=== PATIENT | female | born 1955 | race Two or more races ===

== ENCOUNTER → 2024-01-18 | Outpatient (CLI) | payer MEDICAID, SELFPAY ==
[2024-01-17 13:19] LABS: Basophils % (Auto) 0 % (0-2.5); Eosinophils # (Auto) 0.1 Thou/mm3 (0.0-0.5); Eosinophils % (Auto) 1 % (0-10); Hematocrit 37.4 % (36.0-46.0); Hemoglobin 12.5 g/dL (12.0-16.0); Immature Granulocytes % (Auto) 0 % (0-0); Immature Granulocytes Auto 0.03 Thou/mm3 (0.00-0.00); Lymphocytes # (Auto) 3.5 Thou/mm3 (1.0-4.8); Lymphocytes % (Auto) 36 % (10-50); Mean Corpuscular HGB Conc 33.4 g/dl (31.0-37.0); Mean Corpuscular Hemoglobin 31.6 pg (25.0-35.0); Mean Corpuscular Volume 94 fL (80-100); Monocytes # (Auto) 0.6 Thou/mm3 (0.0-0.8); Monocytes % (Auto) 6 % (0-12); Neutrophils # (Auto) 5.6 Thou/mm3 (1.8-7.7); Neutrophils % (Auto) 57 % (37-80); Nucleated Red Blood Cell % 0 /100 WBC (0); Platelet Count 216 Thou/mm3 (140-440); RDW Standard Deviation 42.8 fL (36.4-46.3); Red Blood Count 3.96 Miln/mm3 (4.00-5.20); White Blood Count 9.8 Thou/mm3 (3.6-11.0)
[2024-01-17 13:21] LABS: INR 0.9 (0.9-1.3); Partial Thromboplastin Time 24.3 Seconds (22.0-36.0); Prothrombin Time 10.4 Seconds (9.0-12.2)
--- NOTE | 2024-01-18 | XR_ITS ---
Examination: Ultrasound-guided fine needle percutaneous aspiration thyroid nodule, left thyroid nodule. Thyroid sonography, limited Exam date and time: January 18, 2024 1043 hours INDICATIONS: Thyroid sonogram November 17, 2023 lower pole mass indistinct margins left thyroid 16 x 9 x 15 mm. Technique: A timeout was completed verifying correct patient, procedure, site, positioning and special equipment if applicable. The patient was placed in supine position for the thyroid fine needle percutaneous aspiration The patient's left neck was prepped and draped in sterile fashion. Maximum barrier sterile technique, hand hygiene, ultrasound sterile technique. 1% lidocaine was used to anesthetize the skin and subcutaneous tissues to the patient's right thyroid nodule. Multiple fine needle aspirations were performed and multiple thyroid specimens placed in preservative according to the [facility] protocol. Specimens appears satisfactory. The attending radiologist was present for the entire procedure. Estimated blood loss 3 cc. The patient tolerated the procedure well and there were no complications. Impression: Successful ultrasound-guided fine-needle percutaneous aspiration thyroid nodule, lower pole left thyroid nodule.
--- NOTE | 2024-01-18 09:30 | XR_ITS ---
Examination: Ultrasound-guided fine needle percutaneous aspiration thyroid nodule, lower right thyroid nodule. Thyroid sonography, limited Exam date and time: January 18, 2024 1042 hours INDICATION: Thyroid sonogram November 17, 2023 lower pole right thyroid nodule 19 x 17 mm. Technique: A timeout was completed verifying correct patient, procedure, site, positioning and special equipment if applicable. The patient was placed in supine position for the thyroid fine needle percutaneous aspiration The patient's right neck neck was prepped and draped in sterile fashion. Maximum barrier sterile technique, hand hygiene, ultrasound sterile technique. 1% lidocaine was used to anesthetize the skin and subcutaneous tissues to the patient's right thyroid nodule. Multiple fine needle aspirations were performed and multiple thyroid specimens placed in preservative according to the [facility] protocol. Specimens appears satisfactory. The attending radiologist was present for the entire procedure. Estimated blood loss 3 cc. The patient tolerated the procedure well and there were no complications. Impression: Successful ultrasound-guided fine-needle percutaneous aspiration thyroid nodule, right lower pole thyroid nodule.
== END | disposition home or self-care (01) ==
LOC: SIRX 09:48
PROVIDERS: Radiology Diagnostic Radiology; Referring Provider Nurse Practitioner Family; Visit Provider Nurse Practitioner Family
DX: E04.2 Nontoxic multinodular goiter (principal); C50.212 Malignant neoplasm of upper-inner quadrant of left female breast; Z01.812 Encounter for preprocedural laboratory examination
CPT/HCPCS: 10005; 10006; 36415; 85025; 85610; 85730

== ENCOUNTER 2024-01-30 11:14 | Outpatient (RCR) | payer MEDICAID, SELFPAY ==
--- NOTE | 2024-02-03 23:53 | CTCFLWUP_ITS ---
Patient: ESTEPHANIA MCNAIR : 1955 Page 5 of 7 FOLLOW UP NOTE DATE OF SERVICE: 01/30/2024 NAME: ESTEPHANIA MCNAIR ACCOUNT: [id number] : 1955 AGE: 68 INTERVAL HISTORY: Patient is complaining of pain in her bilateral shoulders. Patient have difficulty moving shoulders and arms. At last visit she was given exercises and she says she is unable to do them. Denies any i njury. Pain is at least 9 x 10 in both ONCOLOGY HISTORY: DIAGNOSIS: Malignant neoplasm of upper-inner quadrant of left female breast [ICD10] C50.212 DATE OF DIAGNOSIS: STAGE/TNM: TREATMENT HISTORY: Care?Plan Start?Date Cycle Day Intent PROLia?60mg?every?6?months 10/17/2019 1 180 Palliative HISTORY OF PRESENT ILLNESS: PREVIOUS NOTE: Estephania Jones is a 68-year-old female with following oncology history. 07/20/2015: Patient had screening mammograms which showed a focal asymmetry in the central inner quadr ant with evidence of underlying nodularity in the left breast. 02/01/2016: Patient had ultrasound-guided right breast mass biopsy which showed ER positive, FL posit jose martin HER-2/henrietta negative, moderately differentiated invasive ductal carcinoma. 03/08/2016: Patient had left breast mastectomy which revealed a 4.2 cm intermediate grade invasive caitlin justus carcinoma. 5 sentinel lymph nodes were negative for metastatic disease. Oncotype DX recurrence score was 6. In view of the low Oncotype DX recurrence score 6. Chemotherapy was not offered to the patient. 04/20/2016: Patient was started on anastrozole 1 mg p.o. daily. 05/10/2016: Patient had DEXA scan done which showed osteoporosis based on hip measurements. December 2016: Anastrozole was changed to exemestane due to bone pain. 11/16/2017:. I am seeing the patient for the first time. She complains of generalized body aches as well as weakness and fatigue. She continues to take exemestane at this time. She denies any other complaints. She d enies any weight loss or loss of appetite. Her body aches have been worsening over the last few months. 12/01/2017: Patient had CT scan of the chest abdomen pelvis with IV contrast which did not show any e vidence of metastatic disease. 12/04/2017: Patient is in the clinic today for follow-up. She continues to have body aches. Denies any cough chest pain Shortness of breath abdominal pain or leg cramps. Patient is started on tamoxifen 20 mg p.o. daily. 03/29/2018: Since last visit patient stopped taking exemestane. She has been taking tamoxifen 20 mg p .o. daily. She is in the clinic today for follow-up. Her body aches have significantly improved. She is doing very well. Denies any new complaints. Denies any weakness fatigue cough chest pain shortness of breath abdominal pain or leg c ramps. 02/07/2019: CT scan of the abdomen and pelvis?IMPRESSION: The entire study is severely degraded by sign ificant patient motion No interval metastatic disease Anterolisthesis L3 on L4, which may relate to patient motion bu t clinical correlation advised Recommend 5 view lumbar spine series follow-up 02/08/2019: PET CT scan?IMPRESSION: 6 mm hypermetabolic left tracheobronchial lymph node, suspicious fo r metastatic lymphadenopathy Subtle hypermetabolic activity anterior right acromium, clinical correlation advised No pathologic bony lesion is noted on the corresponding CT images involving the right acromion. 03/07/2019: X-rays of the lumbar spine?no acute lumbar fracture. Mild disc narrowing noted at the L5- S1 level. 08/21/2019: Bone density test? 08/30/2019: PET CT scan?negative for metastatic disease. 03/02/2023: DEXA 05/31/2023: CA 15-3 14.6, CEA 1.8 06/28/2023 CT chest abdomen and pelvis with contrast 07/14/2023: Right unilateral mammogram screening 08/04/2023: Right breast ultrasound Findings: No cystic or solid mass Impression: BI-RADS Category 1: Negative study 08/23/2023: 08/23/2023: 10/31/2023: Calcium 8.1, CA 15-3 is 11.2, CEA is 1.7 11/01/2023: CT chest without contrast OTHER MEDICAL HISTORY/CONDITIONS: FAMILY HISTORY: SOCIAL HISTORY: COMMUNITY MANAGER HISTORY: MEDICATIONS: 1. Citracal + D Slow Release - 600 mg-12.5 mcg (500 unit) 1 tab one tab po twice a day 2. Prolia - 60 3. tamoxifen - 20 mg 1 tab one tab po q daily Medications Last Reconciled by Estephania Arizmendi MA on 01/30/2024 ALLERGIES: No Known Allergies REVIEW OF SYSTEMS: A complete 14-point review of systems was performed and is negative except as noted in interval histo ry. PHYSICAL EXAMINATION: VITAL SIGNS: Temperature?99, B/P?146/84, Oxygen?Saturation?96% Weight?137?lbs PAIN: 5 - Between moderate and severe pain ECOG Performance Status: 2 - Symptomatic; ambulatory; capable of self-care; >50% of waking hrs. not i n bed GENERAL APPEARANCE: Appears well, in no apparent distress, appropriately interactive. HEENT: Normocephalic, no temporal wasting, normal conjunctiva, no scleral icterus, normal hearing, li ps without lesions, neck normal range of motion. CARDIOVASCULAR: Not assessed. PULMONARY: Normal respiratory effort, no respiratory distress or use of accessory muscles, speaking i n full sentences, no tachypnea. EXTREMITIES: No pedal edema or cyanosis. SKIN: Normal skin appearance. NEUROLOGIC: Alert and oriented x4. PSHYCHIATRIC: Appropriate affect, mood normal, behavior normal, intact thought and speech. LABORATORY DATA: I have personally reviewed and interpreted each of the patient?s relevant lab tests, abnormal finding s are below: Date 01/17/24 ??WHITE?BLOOD?COUNT?(Thou/mm3) 9.8 ??RED?BLOOD?COUNT?(Miln/mm3) 3.96?L ??HEMOGLOBIN?(gm/dl) 12.5 ??HEMATOCRIT?(%) 37.4 ??PLATELET?COUNT?(Thou/mm3) 216 ??NEUTROPHILS?%,?AUTO?(%) 57 ??LYMPH?%,?AUTO?(%) 36 ??NEUTROPHILS,?AUTO?(Thou/mm3) 5.6 ASSESSMENT/PLAN: #1 stage IIa, ER positive, FL positive, HER-2/henrietta negative invasive ductal carcinoma of left breast. Oncotype DX recurrence score 6. S/p left mastectomy and sentinel lymph node biopsy on 03/08/2016. Patient is on tamoxifen #2 osteoporosis. DEXA showed improvement, (03/04/2023) Taking calcium twice daily, admits to forgetting to take daily . Prolia every 6 months. Hypertension, asymptomatic, did not take medication prior to appointment toda y. #3 pulmonary and thyroid nodules Thyroid nodule biopsied and are negative Placed referral to endocrinology Cocci titers were negative and TB test was negative Advised to follow-up with primary care #4 bilateral shoulder pain Ordered x-ray of both shoulders I have tried conservative treatment with exercises and patient did not have any improvement Will refer to orthopedics for evaluation Ordered CPK CBC CMP and advised to do the labs before patient sees orthopedics Will also get bone scan to make sure patient do not have metastatic disease CBC CMP bone scan referral to orthopedics refer to endocrinology TSH T4 and advised to follow-up with the primary care RETURN TO CLINIC: 4 to 6 weeks once patient's bone scan results are back BILLING AND COMPLIANCE: I reviewed external records from providers outside my specialty as summarized above. I spent a total of 50 minutes on this patient?s care on the day of their visit excluding time spent related to any bi lled procedures. This time includes time spent with the patient as well as time spent documenting in the medical record, reviewing patients records and tests, obtaining history, placing orders, communi cating with other healthcare professionals, counseling the patient, family or caregiver, and/or care coordination for the diagnoses above. Electronically Signed by: Milton Henderson MD T: 11:50 PM CC: Reynaldo?Puma,?ATIF PCP: Herve Hillman ([email or web address]) Referring: Milton Henderson This document was completed utilizing speech recognition software. Grammatical errors, random word in sertions, pronoun errors, and incomplete sentences are an occasional consequence of this system due t o software limitations, ambient noise, and hardware issues. Any formal questions or concerns about th e content, text or information contained within the body of this dictation should be directly address ed to the provider for clarification.
== END 2024-02-06 23:59 | disposition home or self-care (01) ==
LOC: SCTC 11:14
PROVIDERS: PCP Internal Medicine; Referring Provider Internal Medicine Hematology & Oncology; Visit Provider Internal Medicine Hematology & Oncology
DX: C50.212 Malignant neoplasm of upper-inner quadrant of left female breast (principal); Z17.0 Estrogen receptor positive status [ER+]; Z17.21 Progesterone receptor positive status; Z17.32 Human epidermal growth factor receptor 2 negative status; Z90.12 Acquired absence of left breast and nipple; Z79.810 Long term (current) use of selective estrogen receptor modulators (SERMs); M81.0 Age-related osteoporosis without current pathological fracture; E04.1 Nontoxic single thyroid nodule; R91.1 Solitary pulmonary nodule; M25.512 Pain in left shoulder; M25.511 Pain in right shoulder
CPT/HCPCS: Q3014

== ENCOUNTER → 2024-03-29 | Outpatient (CLI) | payer MEDICAID, SELFPAY ==
--- NOTE | 2024-03-29 09:00 | XR_ITS ---
Examination: MRI of brain without intravenous contrast. MRI brain with intravenous contrast. Date and time of exam:March 29, 2024 0954 hours INDICATIONS: Diagnosis malignant neoplasm upper inner quadrant left female breast, history blurred vision dizziness episodes 6 months Technique: Multiple axial and sagittal images of the brain to been obtained. Siemens high-resolution 1.52 [place] short bore scanner utilized. Sagittal sections, T1 weighted images, TR 500, TE 14, are performed. Axial sections proton-density and T2-weighted images have been obtained. Inversion recovery axial images, TR 9260, TE 111, TR 2500. Diffusion weighted images, axial sections, TR 4800, TE 128, B value 1000. Axial sections, ADC map, TR 4800, TE 128. Axial and coronal images were also obtained post 12 cc gadolinium administered intravenously. Findings:: Enlargement of the sella turcica is not present. The optic chiasm and infundibular stalk are not remarkable. There is no localized enlargement of the medulla or ruth. Fourth ventricle and cerebellar tonsils appear normal in position. No subacute area of hemorrhage density is seen. Fourth ventricle is midline. Mass in the cerebellopontine angle region is not evident. 7th and 8th nerve complexes exhibit symmetry Globes are symmetrical Orbital musculature including medial lateral rectus muscles do not exhibit abnormality Increased white matter signal is mild Effacement of the cortical sulcal markings is not identified. Mass effect upon the ventricular system is not identified. Diffusion-weighted images demonstrate no focus of restricted diffusion Contrast images demonstrate no abnormal enhancing cerebellar or cerebral lesions Impression: Negative for acute hemorrhage mass effect or midline shift No acute infarct No abnormal enhancing cerebellar or cerebral lesions
== END | disposition home or self-care (01) ==
LOC: SMRI 09:15
PROVIDERS: PCP Physician Assistant; Referring Provider Internal Medicine Hematology & Oncology; Visit Provider Internal Medicine Hematology & Oncology
DX: C50.212 Malignant neoplasm of upper-inner quadrant of left female breast (principal)
CPT/HCPCS: 70553; A9579

== ENCOUNTER → 2024-04-01 | Outpatient (CLI) | payer MEDICAID, SELFPAY ==
--- NOTE | 2024-04-01 12:30 | XR_ITS ---
Examination: Bone scan whole body, radioisotope Date and time of exam: April 01, 2024 1221 hrs. Indications: Diagnosis malignant neoplasm left female breast, bilateral shoulder pain SOB today post mastectomy 2016 Technique: Study has been performed with intravenous administration of 22.3 mci 99M technetium MDP. Anterior, posterior whole body images are obtained. Images have been obtained including the lower extremities. Findings: Focal increased uptake over the right knee Minor increased uptake over the left humeral head Uptake left hemipelvis which may be in the bladder Subtle increased uptake in the lumbar spine at all levels as well as lower dorsal spine Impression: Positive bone scan although not diagnostic for osseous metastatic disease Recommend plain films left shoulder, thoracic lumbar spine AP pelvis follow-up
== END | disposition home or self-care (01) ==
LOC: SNUC 08:55
PROVIDERS: PCP Physician Assistant; Referring Provider Internal Medicine Hematology & Oncology; Visit Provider Internal Medicine Hematology & Oncology
DX: R93.7 Abnormal findings on diagnostic imaging of other parts of musculoskeletal system (principal); C50.212 Malignant neoplasm of upper-inner quadrant of left female breast
CPT/HCPCS: 78306; A9503

== ENCOUNTER → 2024-04-15 | Outpatient (CLI) | payer MEDICAID, SELFPAY ==
--- NOTE | 2024-04-15 09:45 | XR_ITS ---
Examination: PA lateral chest 2 views Technique: Upright PA lateral chest 2 views Exam date and time: April 15 2024 0954 hrs. Comparison chest film March 07, 2016, nuclear medicine bone scan April 01, 2024 Indications: Diagnosis malignant neoplasm breast Findings: Minor prominence left ventricle Mild ectasia thoracic aorta No mediastinal lymphadenopathy No pneumonia or pulmonary edema No pulmonary nodules depicted Moderate osteopenia No cortical bone destruction identified Impression: No mediastinal lymphadenopathy No pneumonia, pulmonary edema or pulmonary nodules identified
== END | disposition home or self-care (01) ==
PROVIDERS: PCP Physician Assistant; Referring Provider Internal Medicine Hematology & Oncology; Visit Provider Internal Medicine Hematology & Oncology
DX: C50.212 Malignant neoplasm of upper-inner quadrant of left female breast (principal)
CPT/HCPCS: 71046

== ENCOUNTER 2024-04-16 15:22 | Outpatient (RCR) | payer MEDICAID, SELFPAY | END 2024-05-06 23:59 | disposition home or self-care (01) | LOC: SCTC 15:22 | PROVIDERS: PCP Internal Medicine; Referring Provider Internal Medicine Hematology & Oncology; Visit Provider Nurse Practitioner Family | DX: C50.212 Malignant neoplasm of upper-inner quadrant of left female breast (principal); Z17.0 Estrogen receptor positive status [ER+]; Z17.21 Progesterone receptor positive status; Z17.32 Human epidermal growth factor receptor 2 negative status; Z90.12 Acquired absence of left breast and nipple; Z79.810 Long term (current) use of selective estrogen receptor modulators (SERMs); M81.0 Age-related osteoporosis without current pathological fracture; E04.1 Nontoxic single thyroid nodule; R91.1 Solitary pulmonary nodule; M25.512 Pain in left shoulder; M25.511 Pain in right shoulder; R51.9 Headache, unspecified | CPT/HCPCS: 99212; G0463 ==

== ENCOUNTER → 2024-05-21 | Outpatient (CLI) | payer MEDICAID, SELFPAY ==
--- NOTE | 2024-05-21 08:45 | XR_ITS ---
EXAMINATION: PET/CT FUSION SKULL TO THIGH EXAM DATE AND TIME: May 21, 2024 0952 hours Comparison nuclear medicine bone scan April 01, 2024, CT chest 11/01/2023, PET CT scan February 08, 2019 INDICATIONS: Diagnosis breast cancer, restaging post treatment CTDI:vol (mGy) : 54 DLP: (mGycm) : 14.86 PROCEDURE: 14.9 mCi FDG was administered intravenously To allow for distribution and uptake of radiotracer, the patient was allowed to rest quietly in a shielded room. Imaging was performed on an integrated 16-slice PET/CT scanner, with scanning from the skull base to the mid thigh. Serum blood glucose at the time of the injection was measured 85 mg/dL. CT scanning was performed without oral or intravenous contrast material. FINDINGS: Head and Neck: No hypermetabolic neck activity Chest: Stable 6 mm hypermetabolic left tracheobronchial lymph node compared to PET CT scan February 08, 2019 4 mm hypermetabolic right hilar lymph node not clearly depicted on the prior PET CT scan. No hypermetabolic pulmonary nodules, please see the CT chest report June 28, 2023 Abdomen and Pelvis: There is no vidhi hypermetabolism in retroperitoneal or pelvic chains. The spleen is normal in size and FDG avidity. Musculoskeletal: Marrow uptake is within normal range. IMPRESSION: Stable 6 mm hypermetabolic left tracheobronchial lymph node compared to PET CT scan February 08, 2019 4 mm hypermetabolic right hilar lymph node not clearly depicted on the prior PET/CT scan
== END | disposition home or self-care (01) ==
PROVIDERS: PCP Internal Medicine; Referring Provider Nurse Practitioner Family; Visit Provider Nurse Practitioner Family
DX: C50.212 Malignant neoplasm of upper-inner quadrant of left female breast (principal)
CPT/HCPCS: 78815; A9552

== ENCOUNTER 2024-07-15 14:08 | Outpatient (RCR) | payer MEDICAID, SELFPAY | END 2024-08-05 23:59 | disposition home or self-care (01) | LOC: SCTC 14:08 | PROVIDERS: PCP Internal Medicine; Referring Provider Nurse Practitioner Family; Visit Provider Nurse Practitioner Family | DX: C50.212 Malignant neoplasm of upper-inner quadrant of left female breast (principal); Z17.0 Estrogen receptor positive status [ER+]; Z17.21 Progesterone receptor positive status; Z17.32 Human epidermal growth factor receptor 2 negative status; Z79.810 Long term (current) use of selective estrogen receptor modulators (SERMs); M81.0 Age-related osteoporosis without current pathological fracture; R91.1 Solitary pulmonary nodule; R51.9 Headache, unspecified; M25.512 Pain in left shoulder; M25.511 Pain in right shoulder | CPT/HCPCS: 99212; G0463 ==

== ENCOUNTER 2024-09-11 10:30 | Outpatient (RCR) | payer MEDICAID, SELFPAY | END 2024-10-06 23:59 | disposition home or self-care (01) | LOC: SCTC 10:30 | PROVIDERS: PCP Internal Medicine; Referring Provider Internal Medicine; Visit Provider Nurse Practitioner Family | DX: C50.212 Malignant neoplasm of upper-inner quadrant of left female breast (principal); Z17.0 Estrogen receptor positive status [ER+]; Z17.21 Progesterone receptor positive status; Z17.32 Human epidermal growth factor receptor 2 negative status; Z79.810 Long term (current) use of selective estrogen receptor modulators (SERMs); M81.0 Age-related osteoporosis without current pathological fracture; M19.90 Unspecified osteoarthritis, unspecified site | CPT/HCPCS: 99212; G0463 ==

== ENCOUNTER → 2024-09-11 | Outpatient (CLI) | payer MEDICAID, SELFPAY ==
--- NOTE | 2024-09-11 | XR_ITS ---
Examination: AP pelvis single view Technique one AP portable supine pelvis single view Date and time: September 11, 2024 1245 hours INDICATIONS: Pelvic pain 3 years, diagnosis malignant neoplasm breast, nuclear medicine bone scan April 01, 2024 with uptake possibly over the left pelvis FINDINGS: No hip or pelvic fracture No osteolytic or osteoblastic lesions noted IMPRESSION: No fractures No findings of osseous metastatic disease Mild bilateral hip osteoarthritis
--- NOTE | 2024-09-11 | XR_ITS ---
Examination: Thoracic spine 3 views Technique one AP lateral coned lateral upper dorsal spine 3 views Date and time: September 11 thousand 25, 1246 hours INDICATIONS: Upper back pain 3 years, diagnosis malignant neoplasm breast, positive nuclear medicine bone scan April 01, 2024 including uptake in the lumbar and dorsal spine FINDINGS: Lower thoracic levoscoliosis 10 degrees Significant osteopenia Significant osteophyte formation involving T12 which may account for the acetabula accumulation No findings diagnostic for osseous metastatic disease IMPRESSION: No findings diagnostic for osseous metastatic disease
--- NOTE | 2024-09-11 | XR_ITS ---
Examination: Shoulder,left, 3 views Technique: Shoulder AP internal rotation, AP external rotation, Y view shoulder, 3 views Exam date and time :September 11, 2024 1235 hours INDICATIONS: Diagnosis malignant neoplasm left breast, nuclear medicine bone scan April 01, 2024 increased uptake over the left humeral head FINDINGS: Moderate narrowing glenohumeral joint Minimal calcific tendinitis No fracture or shoulder dislocation No findings diagnostic for osseous metastatic disease IMPRESSION: No findings diagnostic for osseous metastatic disease
== END | disposition home or self-care (01) ==
LOC: CDIM 11:53
PROVIDERS: PCP Physician Assistant; Referring Provider Nurse Practitioner Family; Visit Provider Nurse Practitioner Family
DX: M16.0 Bilateral primary osteoarthritis of hip (principal); M54.89 Other dorsalgia; C50.212 Malignant neoplasm of upper-inner quadrant of left female breast
CPT/HCPCS: 72072; 72170; 73030

== ENCOUNTER → 2024-11-19 | Outpatient (CLI) | payer MEDICAID, SELFPAY ==
--- NOTE | 2024-11-19 08:00 | XR_ITS ---
EXAMINATION: PET/CT FUSION SKULL TO THIGH EXAM DATE AND TIME: November 19, 2024, 0911 hours, comparison May 21, 2024 INDICATIONS: Diagnosis breast cancer post treatment restaging, 6 mm hypermetabolic left tracheobronchial lymph node, 4 mm hypermetabolic right hilar lymph node on PET CT scan May 21, 2024 CTDI:vol (mGy) 4.65 DLP: (mGycm) 425 PROCEDURE: 15.5 mCi FDG was administered intravenously To allow for distribution and uptake of radiotracer, the patient was allowed to rest quietly in a shielded room. Imaging was performed on an integrated 16-slice PET/CT scanner, with scanning from the skull base to the mid thigh. Serum blood glucose at the time of the injection was measured 100 mg/dL. CT scanning was performed without oral or intravenous contrast material. FINDINGS: Head and Neck: There is no vidhi hypermetabolism in the neck. The visualized portions of the brain are normal in appearance on CT. Chest: Stable 6 mm weakly hypermetabolic left tracheobronchial lymph node Stable weakly hypermetabolic 4 mm right hilar lymph node Abdomen and Pelvis: There is no vidhi hypermetabolism in retroperitoneal or pelvic chains. The spleen is normal in size and FDG avidity. Musculoskeletal: Marrow uptake is within normal range. IMPRESSION: Compared with PET/CT scan May 21, 2024: Stable 6 mm weakly hypermetabolic left tracheobronchial lymph node Stable weakly hypermetabolic 4 mm right hilar lymph node No interval mediastinal adenopathy No interval pneumonia pulmonary edema or pulmonary nodules No interval metastatic disease in the abdomen or pelvis
== END | disposition home or self-care (01) ==
PROVIDERS: Referring Provider Nurse Practitioner Family; Visit Provider Nurse Practitioner Family
DX: C50.212 Malignant neoplasm of upper-inner quadrant of left female breast (principal)
CPT/HCPCS: 78815; A9552